=== PATIENT | female | born 1965 | race Caucasian/White ===

== ENCOUNTER 2017-08-23 15:13 | Emergency (ER) | payer OTHER ==
[2017-08-23 15:21] VITALS: BP 108/81
--- NOTE | 2017-08-23 16:22 | RAD ---
INDICATION: LEFT wrist and forearm pain post traumatic injury. COMPARISON: No relevant prior exams available on the [facility] P[facility] for comparison. TECHNIQUE: AP, lateral, and oblique views LEFT wrist. Scaphoid view obtained. AP and lateral views LEFT forearm. REPORT: Normal articular alignment at the forearm and wrist. Transverse fracture through the distal metaphysis of the radius with extension to the distal radial ulnar joint without appreciable articular surface discontinuity or incongruity. Mild dorsal impaction with resulting loss of the normal volar tilt of the distal radial articular surface. Negative for associated fracture of the ulna. Negative for carpal bone fracture. 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 Soft tissue swelling about the distal forearm and wrist. IMPRESSION: Mildly impacted fracture at the distal metaphysis of the radius with extension to the distal radioulnar joint. No additional fracture evident at the wrist or forearm.
--- NOTE | 2017-08-23 16:22 | RAD ---
INDICATION: LEFT wrist and forearm pain post traumatic injury. COMPARISON: No relevant prior exams available on the [facility] PACS for comparison. TECHNIQUE: AP, lateral, and oblique views LEFT wrist. Scaphoid view obtained. AP and lateral views LEFT forearm. REPORT: Normal articular alignment at the forearm and wrist. Transverse fracture through the distal metaphysis of the radius with extension to the distal radial ulnar joint without appreciable articular surface discontinuity or incongruity. Mild dorsal impaction with resulting loss of the normal volar tilt of the distal radial articular surface. Negative for associated fracture of the ulna. Negative for carpal bone fracture. 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 Soft tissue swelling about the distal forearm and wrist. IMPRESSION: Mildly impacted fracture at the distal metaphysis of the radius with extension to the distal radioulnar joint. No additional fracture evident at the wrist or forearm.
[2017-08-23] MEDS ORDERED: Acetaminophen TAB* 325 MG PO ONE (16:35)
--- NOTE | 2017-08-23 20:47 | ED ---
Erika Painting Nilda, scribed for Richard Felix MD on 08/23/17 at 1603 . Upper Extremity Pain - HPI Summary HPI Summary: This patient is a 52 year old F presenting to [facility] accompanied by with a chief complaint of constant severe L-wrist pain s/p falling off a 4-hdez and landing on her left hand an hour ago. The patient rates the pain 10/10 in severity. Symptoms aggravated by movement and alleviated by ice. Patient denies trauma elsewhere, neck pain, and back pain. She is currently not on blood thinners. - History of Current Complaint Chief Complaint: EDExtremityUpper Stated Complaint: LEFT HAND INJUREY Time Seen by Provider: 08/23/17 15:23 Hx Obtained From: Patient Mechanism Of Injury: Fall From Height Of: - 4 hdez Onset/Duration: Started Hours Ago, Traumatic, Still Present Timing: Constant Severity Currently: Severe Pain Location: Wrist - left Aggravating Factor(s): Movement Alleviating Factor(s): Rest, Ice Associated Signs & Symptoms: Positive: Other - denies trauma elsewhere, neck pain, and back pain - Allergies/Home Medications Allergies/Adverse Reactions: Allergies Allergy/AdvReac Type Severity Reaction Status Date / Time No Known Allergies Allergy Verified 08/23/17 15:21 PMH/Surg Hx/FS Hx/Imm Hx Endocrine/Hematology History: Reports: Hx Thyroid Disease - 2004 THYROID CANCER , TOTAL THYROIDECTOMY, ON MEDS Cardiovascular History: Denies: Other Cardiovascular Problems/Disorders Respiratory History: Denies: Other Respiratory Problems/Disorders GI History: Denies: Other GI Disorders Musculoskeletal History: Reports: Hx Arthritis - RIGHT THUMB, Other Musculoskeletal History - SEES CHIROPRACTOR FOR NECK PAIN PRN Denies: Hx Osteoporosis Sensory History: Reports: Hx Contacts or Glasses - CONTACTS , WILL WEAR GLASSES DAY OF SURGERY Denies: Hx Hearing Aid Opthamlomology History: Reports: Hx Contacts or Glasses - CONTACTS , WILL WEAR GLASSES DAY OF SURGERY - Cancer History Hx Chemotherapy: No - Surgical History Surgery Procedure, Year, and Place: 2001 & 2002 [place] [facility] [place] [facility] [place] CARPAL TUNEL RELEASE RT HAND Hx Anesthesia Reactions: Yes - TROUBLE WITH EPIDURAL, UNSURE WHAT Infectious Disease History: No Infectious Disease History: Denies: Traveled Outside the [place] in Last 30 Days - Family History Known Family History: Negative: Hypertension, Diabetes - Social History Lives: With Family Alcohol Use: Rare Alcohol Amount: 1 PER WEEK Substance Use Type: Reports: None Smoking Status (MU): Light Every Day Tobacco Smoker Type: Cigarettes Amount Used/How Often: 6 CIGS PER DAY Have You Smoked in the Last Year: Yes Review of Systems Negative: Shortness Of Breath Positive: Other - left wrist pain; negative trauma elsewhere, neck pain, and back pain All Other Systems Reviewed And Are Negative: Yes Physical Exam Triage Information Reviewed: Yes Vital Signs On Initial Exam: Initial Vitals Temp Pulse Resp BP Pulse Ox 98.4 F 69 16 108/81 100 08/23/17 15:18 08/23/17 15:18 08/23/17 15:18 08/23/17 15:18 08/23/17 15:18 Appearance: Positive: Well-Appearing, Pain Distress Skin: Positive: Warm, Skin Color Reflects Adequate Perfusion Eyes: Positive: EOMI Neck: Positive: Nontender Respiratory/Lung Sounds: Positive: Clear to Auscultation, Breath Sounds Present Cardiovascular: Positive: RRR. Negative: Murmur Abdomen Description: Positive: Nontender Musculoskeletal: Positive: Other - tender to palpate left distal radius no gross deformity or skin tenting. Skin is closed. Neurological: Positive: Sensory/Motor Intact, Alert, Oriented to Person Place, Time, CN Intact II-III Psychiatric: Positive: Normal - Levi Coma Scale Best Eye Response: 4 - Spontaneous Best Motor Response: 6 - Obeys Commands Best Verbal Response: 5 - Oriented Coma Scale Total: 15 Procedures - Splinting Location: left forearm, wrist Hand-Made Type: orthoglass Splint: volar Pre-Proc Neuro Vasc Exam: normal Post-Proc Neuro Vasc Exam: normal Diagnostics - Vital Signs Vital Signs Temp Pulse Resp BP Pulse Ox 08/23/17 15:18 98.4 F 69 16 108/81 100 - Laboratory Lab Statement: Any lab studies that have been ordered have been reviewed, and results considered in the medical decision making process. - Radiology Wrist XR Radiology Interpretation Completed By: Radiologist - Mildly impacted fracture at the distal metaphysis of the radius with extension to the distal radioulnar joint. No additional fracture evident at the wrist or forearm. ED physician has reviewed this radiology report and agrees. Forearm XR Radiology Interpretation Completed By: Radiologist - Mildly impacted fracture at the distal metaphysis of the radius with extension to the distal radioulnar joint. No additional fracture evident at the wrist or forearm. ED physician has reviewed this radiology report and agrees. Course/Dx - Course Assessment/Plan: This patient is a 52 year old F presenting to [facility] accompanied by with a chief complaint of L-wrist pain s/p falling off a 4-hdez and landing on her left hand an hour ago. The patient rates the pain 10/10 in severity. Symptoms aggravated by movement and alleviated by ice. Patient denies trauma elsewhere, neck pain, and back pain. She is currently not on blood thinners. Pending left forearm XR and left wrist XR. Forearm and Wrist XR, per radiologist, reveals mildly impacted fracture at the distal metaphysis of the radius with extension to the distal radioulnar joint. No additional fracture evident at the wrist or forearm. ED physician has reviewed this radiology report and agrees. Dx. Nondisplaced fracture of distal end of left radius. Pt wrist placed in splint. Neurovascularly intact before and after. Pt is stable and will be D/C. - Diagnoses Provider Diagnoses: Nondisplaced fracture of distal end of left radius Discharge - Discharge Plan Condition: Good Disposition: HOME Patient Education Materials: Wrist Fracture in Adults (ED) Referrals: Simone Terrazas MD [Primary Care Provider] - Imer Samayoa MD [Medical Doctor] - 1 Day The documentation as recorded by the Erika camacho Nilda accurately reflects the service I personally performed and the decisions made by Isidro jones Walter, MD.
== END 2017-08-23 17:05 | disposition home or self-care (01) ==
LOC: ED 15:13
DX: S52.92XA Unspecified fracture of left forearm, initial encounter for closed fracture (principal); M54.2 Cervicalgia; V86.59XA Driver of other special all-terrain or other off-road motor vehicle injured in nontraffic accident, initial encounter; Y93.I9 Activity, other involving external motion; Y92.9 Unspecified place or not applicable
CPT/HCPCS: 99282; A9270-GY

== ENCOUNTER 2019-04-01 10:14 | Emergency (ER) | payer OTHER ==
[2019-04-01 10:25] VITALS: BP 108/56
[2019-04-01] MEDS ORDERED: Tetracaine 0.5% OPTH.SOL 4 ML* 1 DROP BTL BOTH EYES ONE (10:31)
[2019-04-01] MEDS ORDERED: Fluorescein Sodium TOPICAL* 1 MG TEST STRIP OPHTHALMIC ONE (10:31)
[2019-04-01] MEDS ORDERED: Erythromycin OPTH OINT* APPLIC OINT RIGHT EYE ONE (10:32)
--- NOTE | 2019-04-01 10:32 | UC ---
Eye Complaint HPI - HPI Summary HPI Summary: This patient is a 53-year-old female who presents to the urgent care with a chief complaint of having redness and irritation of the right eye. The patient reports that she wears contacts 24 hours and this morning when she took the right lens he was difficult and noticed that eye was irritated. Patient reports no pain however she has photophobia. The patient denies any blurred patient multiple patient with decreased vision. She denies any fevers or chills. She denies any nasal congestion. She has no other complaints. - History of Current Complaint Chief Complaint: UCEye Stated Complaint: EYE IRRITATION Time Seen by Provider: 04/01/19 10:22 Hx Obtained From: Patient ?: No Onset/Duration: Gradual Onset Severity Initially: Mild Severity Currently: Mild Pain Intensity: 4 - Allergies/Home Medications Allergies/Adverse Reactions: Allergies Allergy/AdvReac Type Severity Reaction Status Date / Time No Known Allergies Allergy Verified 04/01/19 10:25 PMH/Surg Hx/FS Hx/Imm Hx Previously Healthy: Yes - Surgical History Surgical History: Yes Surgery Procedure, Year, and Place: 2001 & 2002 [place] [facility] [place] [facility] [place]. [place] CARPAL TUNEL RELEASE RT HAND - Family History Known Family History: Positive: Non-Contributory Negative: Hypertension, Diabetes - Social History Alcohol Use: Occasionally Alcohol Amount: 1 PER WEEK Substance Use Type: None Smoking Status (MU): Light Every Day Tobacco Smoker Type: Cigarettes Amount Used/How Often: 6 CIGS PER DAY Have You Smoked in the Last Year: Yes Household Exposure Type: Cigarettes Review of Systems All Other Systems Reviewed And Are Negative: Yes Constitutional: Positive: Negative Skin: Positive: Negative Eyes: Positive: Eye Redness ENT: Positive: Negative Respiratory: Positive: Negative Cardiovascular: Positive: Negative Gastrointestinal: Positive: Negative Genitourinary: Positive: Negative Motor: Positive: Negative Neurovascular: Positive: Negative Musculoskeletal: Positive: Negative Neurological: Positive: Negative Psychological: Positive: Negative Is Patient Immunocompromised?: No Physical Exam - Summary Physical Exam Summary: Vital signs: Reviewed Gen.: Patient is a well developed and nourished female in no acute distress. Patient is sitting comfortably on the stretcher. Head: Normacephalic and atraumatic Eyes: PERRLA, EOMI x2. Positive injected conjunctiva. No foreign bodies, no ulcers, visual acuity normal. Ears: Right ear canal and TM WNL Left ear canal and TM WNL Nose Nose with dry mucosa and clear discharge. No sinus tenderness and mouth: No pharyngeal erythema. Neck: Supple, No bilateral submandibular and anterior cervical lymphadenopathy. No JVD Lungs: CTA B/L CVS: S1 & S2 present. No murmurs appreciated. ABDOMEN: Soft NT w/ positive BS. EXT: FROM x 4 NEURO: A+O X 3. Triage Information Reviewed: Yes Appearance: Well-Appearing Vital Signs: Initial Vital Signs Temp 98.6 F 04/01/19 10:20 Pulse 66 04/01/19 10:20 Resp 16 04/01/19 10:20 BP 108/56 04/01/19 10:20 Pulse Ox 98 04/01/19 10:20 Eye Complaint Course/Dx - Course Course Of Treatment: In the urgent care course I examined both eyes. Right eye with positive erythema without any foreign bodies or any discharge. I used fluorescein to stain the eye after using tetracaine for numbing medication and there was no uptake. Therefore this patient. I believe this is just irritation from the lenses. However to protect her from infection I placed the patient erythromycin ointment. The patient will be given a referral to follow-up with ophthalmology. The patient and agrees with the plan therefore the patient will be discharged home with follow-up with ophthalmology. She was reviewing instructions to return to the urgent care or to the emergency department if she develops any pain, or vision, decreased patient, or any other symptoms. She understands and agrees. - Differential Dx/Diagnosis Provider Diagnosis: Conjunctivitis Discharge - Sign-Out/Discharge Documenting (check all that apply): Patient Departure All imaging exams completed and their final reports reviewed: No Studies - Discharge Plan Condition: Stable Disposition: HOME Prescriptions: Acetaminop/Codeine 30 MG TAB* [Tylenol/Codeine 30 MG TAB*] 1 tab PO Q8H PRN #10 tab MDD 4 PRN Reason: Pain Patient Education Materials: Conjunctivitis (ED) Referrals: Simone Terrazas MD [Primary Care Provider] - Max Montague MD [Medical Doctor] - Additional Instructions: Take medications as instructed Increase your fluid intake F/U with PCP in the next 2-3 days Return to the if symptoms worsen - Billing Disposition and Condition Condition: STABLE Disposition: Home
== END 2019-04-01 11:02 | disposition home or self-care (01) ==
LOC: UCEAST 10:14
DX: H10.9 Unspecified conjunctivitis (principal); F17.210 Nicotine dependence, cigarettes, uncomplicated
CPT/HCPCS: 99201; A9270-GY; G0463